=== PATIENT | female | born 1965 | race Caucasian/White ===

== ENCOUNTER → 2022-06-05 | Day surgery (SDC) | payer MEDICARE ==
[~2022-06-05] MED LIST: ARAVA20 MG PO; ASPIRIN81 MG PO; BUPROPION XL150 MG PO; FAMOTIDINE20 MG PO; FENTANYL CITRATE/PF 100MCG/2 ML INJ ONE; HYDROXYCHLOROQ200 MG PO; LEVOTHYROXINE112 MCG PO; LORATADINE10 MG PO; MIDAZOLAM HCL 2 MG/2 ML VIAL ONE; OR PHACO EYE KIT ONE; PANTOPRAZOLE SO40 MG PO; PRAMIPEXOLE DIHY1 MG PO; PREOP PHACO EYE KIT ONE; SIMPONI AR50 MG/4 ML IV; SINGULAIR10 MG PO; ZONEGRAN100 MG PO; [UNRECOGNIZED DRUG - OTHER] PO
[2022-06-05 12:30] VITALS: BP 112/61
== END | disposition home or self-care (01) ==
LOC: OR 08:53
PROVIDERS: ATTEND Ophthalmology
DX: H25.11 Age-related nuclear cataract, right eye (principal); I25.10 Atherosclerotic heart disease of native coronary artery without angina pectoris; R56.9 Unspecified convulsions; I25.2 Old myocardial infarction; J45.909 Unspecified asthma, uncomplicated; K21.9 Gastro-esophageal reflux disease without esophagitis; M19.90 Unspecified osteoarthritis, unspecified site; M54.9 Dorsalgia, unspecified; F41.9 Anxiety disorder, unspecified; Z79.82 Long term (current) use of aspirin; Z79.899 Other long term (current) drug therapy; Z98.84 Bariatric surgery status; Z95.5 Presence of coronary angioplasty implant and graft
CPT/HCPCS: 66984; J2250; J3010; V2632

== ENCOUNTER → 2022-06-19 | Day surgery (SDC) | payer MEDICARE ==
[2022-06-19 10:20] VITALS: BP 111/53
== END | disposition home or self-care (01) ==
LOC: OR 07:48
PROVIDERS: ATTEND Ophthalmology
DX: H25.12 Age-related nuclear cataract, left eye (principal); E03.9 Hypothyroidism, unspecified; J45.909 Unspecified asthma, uncomplicated; I25.2 Old myocardial infarction; K21.9 Gastro-esophageal reflux disease without esophagitis; F32.A Depression, unspecified; Z79.82 Long term (current) use of aspirin; Z79.899 Other long term (current) drug therapy; Z95.5 Presence of coronary angioplasty implant and graft
CPT/HCPCS: 66984; J2250; J3010; V2632